=== PATIENT | male | born 1980 | race Caucasian/White ===

== ENCOUNTER 2018-02-22 12:36 | Emergency (ER) | payer OTHER ==
[2018-02-22 13:07] VITALS: TEMP 97.8
[2018-02-22] MEDS: ONDANSETRON INJ 4 MG/2 ML VIAL IV ONE ×2 (13:20→13:24)
[2018-02-22] MEDS: MORPHINE SULFATE INJ 10 MG/ML VIAL IV ONE ×2 (13:20→13:24)
--- NOTE | 2018-02-22 13:30 | CT ---
EXAM: CT head CLINICAL INDICATION: Headache COMPARISON: There is no previous study for comparison. TECHNIQUE: The CT scan was done using contiguous axial 5 mm sections through the brain. This exam was performed according to our departmental dose-optimization program, which includes automated exposure control, adjustment of the mA and/or kV according to patient size and/or use of iterative reconstruction technique. FINDINGS: There is no midline shift, mass effect, or extraaxial fluid collection. There is no evidence of acute intracranial hemorrhage, mass lesion, or cerebral edema. The ventricles and cortical sulci are normal for the patient's age. Bone window images reveal no evidence of a skull fracture. IMPRESSION: No evidence of an acute intracranial process. Electronically signed by: Seth Gallo MD 02/22/2018 1:28 PM CDT
[2018-02-22] MEDS ORDERED: ACETAMINOPHEN 325 MG TAB ONE (13:41)
[2018-02-22] MEDS ORDERED: ACETAMINOPHEN 325 MG TAB PO ONE (13:44)
--- NOTE | 2018-02-22 13:53 | ED.PDOC ---
History of Present Illness - General Chief Complaint: Headache Time Seen by Provider: 02/22/18 12:47 Source: patient, Vital Signs reviewed, family Exam Limitations: no limitations - History of Present Illness Initial Comments: headache (mainly occipital) Timing/Duration: other - 2 weeks Quality: moderate Recent Head Trauma: no recent headache/trauma Improving Factors: medication Worsening Factors: nothing Associated Symptoms: vision changes, other - numbness & discomfort to left side of face since 1130 Allergies/Adverse Reactions: Allergies Metoclopramide [From Reglan] Allergy (Severe, Verified 02/22/18 12:45) Succinylcholine Allergy (Severe, Verified 02/22/18 12:45) Review of Systems - Review of Systems Constitutional: States: no symptoms reported, see HPI EENTM: States: see HPI, eye pain Respiratory: States: no symptoms reported Cardiology: States: no symptoms reported Gastrointestinal/Abdominal: States: no symptoms reported Genitourinary: States: no symptoms reported Musculoskeletal: States: no symptoms reported Skin: States: no symptoms reported Neurological: States: see HPI Endocrine: States: no symptoms reported Hematologic/Lymphatic: States: no symptoms reported Past Medical History (General) - Patient Medical History Hx Seizures: Yes Hx Stroke: No Hx Dementia: No Hx Asthma: No Hx of COPD: No Hx Cardiac Disorders: No Hx Congestive Heart Failure: No Hx Pacemaker: No Hx Hypertension: No Hx Thyroid Disease: No Hx Diabetes: No Hx Gastroesophageal Reflux: No Hx Renal Disease: No Hx of HIV: No Hx MRSA: No - Vaccination History Hx Tetanus, Diphtheria Vaccination: No Hx Influenza Vaccination: No Hx Pneumococcal Vaccination: No Immunizations Up to Date: No - Social History Hx Tobacco Use: Yes Hx Chewing Tobacco Use: Yes Hx Alcohol Use: No Hx Substance Use: No Hx Substance Use Treatment: No Hx Depression: No Feels Threatened In Home Enviroment: No Feels Threatened In a Relationship: No Hx Physical Abuse: No Hx Emotional Abuse: No Hx Suspected Abuse: No - Activities of Daily Living Hospice Agency (if applicable):: None - Female History Patient is a Female of Child Bearing Age (10 -59 yrs old): No Patient : No Family Medical History - Family History Mother Family History: Unknown Physical Exam - Physical Exam General Appearance: Alert, Comfortable, No apparent distress Eyes, Ears, Nose, Throat Exam: PERRL/EOMI Neck: non-tender, full range of motion, supple, normal inspection Cardiovascular/Chest: regular rate, rhythm, no edema, no gallop, no JVD, no murmur Respiratory: lungs clear, normal breath sounds, no respiratory distress, no accessory muscle use Gastrointestinal/Abdominal: non tender, soft, no organomegaly Extremity: normal range of motion, normal inspection, no pedal edema, normal capillary refill 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 Testing is normal so far. Will get the discharge summary from his 2014 admission at . 02/22/18 15:09 asymptomatic Summary: He presented with a CC of left facial "cramping" & paresthesias but on detailed questioning there were also milder symptoms on the right. The onset was acute & he denied any initiating event. The pain also involved the left eye & the left tempo-parietal region. (Of note, he has had a different & persistent DELGADILLO for 2 weeks). He had left photophobia & the inability to fully open his eyes or mouth. He said he was having trouble seeing but it seemed to be because he couldn't open his eyes. He said his gums & tongue were numb but chiefly on the left. He denied ear pain or decreased hearing. On occasion he reported having "jerking" to his neck. He denied having any symptoms below the neck. He & his spouse feel like this could be organophosphate poisoning. Reportedly he has had several episodes somewhat similar to this over many years (probably as far back as at least 2011) sometimes requiring hospitalization. However, his previous episodes did not include prolonged headaches & they did include hemiparesis. Based on their account he was admitted at in 2014 & the presumption was that it was NOT OP poisoning but "they sent off a special blood test" & then they said they thought that in fact it was going to be OP poisoning. Also, the spouse says he got better with atropine & pralidoxime. 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 Today he initially said that he knows of no exposures but over the course of his ED stay he began to recall at least 3 very likely exposures with the most recent being 2 days ago. His HPI is significant for the absence of many OP symptoms, e.g. diaphoresis, miosis, fasiculations, respiratory symptoms, emesis , unusual diarrhea or lacrimation. He did have drooling. He presented here with a left sided facial droop that does not appear consistent with a LMN etiology. Both eyes were closed & he was unable to resist my opening them, He would only open his mouth slightly & there was some mild drooling. He had no difficulties speaking or swallowing. The rest of his exam was unremarkable. On 2 occasions he exhibited dystonic movements involving the neck. During his evaluation he had an episode of abnormal movements that his spouse said was "the kind of seizures he has had with this" which looked somewhat chorea-like but were not rhythmic, tonic or clonic & involved the trunk & extremities. He remained awake during the episode & there was no postictal behavior afterwards. He was given an empiric dose of atropine 0.5 mg & all of his symptoms soon resolved. During the course of his evaluation I spoke with the poison control [facility] services program associate who felt OP poisoning was unlikely but felt like cholinesterase levels measured during symptoms & at resolution would be beneficial. - Results/Orders Results/Orders: Hgb 14 K 4.1 - EKG/XRAY/CT EKG: Sinus, no ST T wave changes Comments: NSR @ 61; nml axis/intervals/QRS/ST-T CT Ordered: Yes - brain - wnl CT Interpretation Call Back: No - Consult/PCP Time Called: 15:15 Consult/PCP: d/w UR hospitalist, neuro & ED Departure - Departure Clinical Impression: Headache Qualifiers: Headache type: other headache syndrome Qualified Code(s): G44.89 - Other headache syndrome Time of Disposition: 15:30 Disposition: Transfer to Hospital Condition: Good
[2018-02-22] MEDS ORDERED: ATROPINE 1 MG/10 ML SYG IV ONE (14:06)
[2018-02-22 14:15] VITALS: O2SAT 99
[2018-02-22] MEDS ORDERED: ATROPINE SULFATE 0.5 MG/5 ML SYRINGE IV ONE (14:15)
[2018-02-22 15:53] VITALS: BP 127/70
== END 2018-02-22 15:54 | disposition short-term general hospital (02) ==
LOC: ER 12:36
DX: G44.89 Other headache syndrome (principal); H53.142 Visual discomfort, left eye; R29.810 Facial weakness; Z87.891 Personal history of nicotine dependence; Z88.8 Allergy status to other drugs, medicaments and biological substances